=== PATIENT | male | born 1995 | race Caucasian/White ===

== ENCOUNTER 2017-10-27 19:22 | Emergency (ER) | payer SELFPAY ==
[~2017-10-27] VITALS: Ht 175.3 cm; Wt 65.9 kg
[2017-10-27] MEDS ORDERED: LAMO100 PO (19:44)
[2017-10-27] MEDS ORDERED: RIT20 PO (19:44)
[2017-10-27] MEDS ORDERED: FLUO-191 PO (19:44)
[2017-10-27] MEDS ORDERED: ACETAMINOPHEN/CODEINE 300-30 MG TABLET PO ONE (21:00)
[2017-10-27] MEDS ORDERED: PERTUSS(ACELL),DIPH,TET VAC/PF 0.5 ML VIAL IM ONE (21:00)
[2017-10-27 21:30] VITALS: BP 124/70
== END 2017-10-27 21:31 | disposition home or self-care (01) ==
LOC: EMS 19:25
DX: S05.11XA Contusion of eyeball and orbital tissues, right eye, initial encounter (principal); S50.01XA Contusion of right elbow, initial encounter; J45.909 Unspecified asthma, uncomplicated; Z88.2 Allergy status to sulfonamides; Z88.1 Allergy status to other antibiotic agents; Z88.5 Allergy status to narcotic agent; V00.131A Fall from skateboard, initial encounter; Y93.51 Activity, roller skating (inline) and skateboarding; Y92.89 Other specified places as the place of occurrence of the external cause; Y99.8 Other external cause status
CPT/HCPCS: 29280; 70450; 90471; 90715; 99283; 99284